=== PATIENT | female | born 2000 | race Caucasian/White ===

== ENCOUNTER 2018-03-08 14:55 | Emergency (ER) | payer OTHER ==
[2018-03-08] MEDS ORDERED: ACETAMINOPHEN 325 MG TAB PO ONE (15:14)
--- NOTE | 2018-03-08 15:14 | EDPHY ---
H & P Time Seen by Provider: 03/08/18 15:04 HPI/ROS: CHIEF COMPLAINT: Possible seizure HISTORY OF PRESENT ILLNESS: Patient presents with her friend after an incident that happened last night at 10:00 p.m.. She did not have much to eat or drink and had some marijuana. She was standing up at home, felt lightheaded, knew she was about to faint, and fell back and hit her head on the tile. Her chest was"heaving"per her friend her about 5-10 seconds and then she got up and was alert and lay back on her bed and proceeded to have tonic-clonic shaking more in their arms and her legs with her eyes rolled back for 10-15 seconds. Afterwards she was a little bit confused but was able to speak to her roommate and they actually drove around looking for urgent care but she started feeling better and they went home. She presents today just feeling"out of it"with a headache which is mild. No further episodes. She did not bite her tongue or have incontinence. REVIEW OF SYSTEMS: Eye: no change in vision ENT: no sore throat Cardiac: HPI Pulmonary: no cough or SOB Abdomen: no vomiting, diarrhea, abdominal pain Musculoskeletal: no back pain or neck pain Skin: No laceration Neuro: HPI Constitutional: no fever : no urinary symptoms A comprehensive 10 point review of systems is otherwise negative aside from elements mentioned in the history of present illness. PAST MEDICAL HISTORY: Negative Social history: Here with a friend, [employer] student. General Appearance: Alert and conversant, cooperative. Eyes: No scleral icterus. Pupils equal and reactive, extraocular motion intact , no nystagmus. ENT, Mouth: Normal mucous membranes. No tongue laceration or abrasion. Normal tympanic membranes. Respiratory: Normal respiratory effort, breath sounds equal, lungs are clear to auscultation. Cardiovascular: Regular rate and rhythm. Gastrointestinal: Abdomen is soft and non tender. Neurological: Alert, face symmetric, normal motor and sensory in extremities. Normal [id number] bilaterally, speech is fluent. Skin: Warm and dry, no rashes. Musculoskeletal: No cervical thoracic or lumbar spine tenderness to palpation. Psychiatric: Not agitated. Emergency Department course/MDM: Differential includes syncope with head trauma and post traumatic seizure, head trauma with myoclonic jerking, primary seizure disorder. Plan EKG, CBC chemistry and test, noncontrast head CT discussed and consented. 1610: Results reviewed personally with the patient, differential including but not limited to syncope with head injury and possible concussion versus primary seizure discussed. Warned no driving. Mandatory neurology follow-up. Smoking Status: Never smoked Constitutional: Initial Vital Signs Temperature (C) 36.6 C 03/08/18 14:56 Heart Rate 64 03/08/18 14:56 Respiratory Rate 16 03/08/18 14:56 Blood Pressure 139/85 H 03/08/18 14:56 O2 Sat (%) 100 03/08/18 14:56 O2 Delivery Mode Room Air Allergies/Adverse Reactions: No Known Allergies Allergy (Unverified 03/08/18 15:00) Home Medications: Medication Instructions Recorded NK [No Known Home Meds] 03/08/18 Medical Decision Making - Diagnostics EKG Interpretation: 12-lead EKG interpreted by me; official reading is in trace master. My interpretation is sinus rhythm rate 52 normal intervals. Imaging Results: Imaging Impressions Head CT 03/08/18 15:15 Impression: No acute intracranial findings. If symptoms persist and clinical suspicion warrants, consider MRI. Findings discussed with REECE KELLEY 03/08/2018 at 16:06. Normal head CT per Dr. Gonzalez at 4:06 p.m. Imaging: Discussed imaging studies w/ outbound call center representative Radiologist Differential Diagnosis: Differential diagnosis considered for head injury including but not limited to concussion, skull fracture, intraparenchymal contusion, subarachnoid, subdural and epidural hematoma. Differential diagnosis considered for a seizure including but not limited to electrolyte abnormality, alcohol withdrawal, medication noncompliance, head injury, and breakthrough seizure. - Data Points Laboratory Results: Laboratory Results 03/08/18 15:03 03/08/18 15:03 03/08/18 03/08/18 03/08/18 15:03 15:03 15:03 WBC 5.17 10^3/uL 10^3/uL (3.80-9.50) RBC 4.96 10^6/uL 10^6/uL (4.18-5.33) Hgb 10.8 g/dL L g/dL (12.6-16.3) Hct 35.8 % L % (38.0-47.0) MCV 72.2 fL L fL (81.5-99.8) MCH 21.8 pg L pg (27.9-34.1) MCHC 30.2 g/dL L g/dL (32.4-36.7) RDW 16.1 % H % (11.5-15.2) Plt Count 232 10^3/uL 10^3/uL (150-400) MPV 8.8 fL fL (8.7-11.7) Neut % (Auto) 49.3 % % (39.3-74.2) Lymph % (Auto) 39.8 % % (15.0-45.0) [place] % (Auto) 9.7 % % (4.5-13.0) Eos % (Auto) 0.4 % L % (0.6-7.6) Baso % (Auto) 0.6 % % (0.3-1.7) Nucleat RBC Rel Count 0.0 % % (0.0-0.2) Absolute Neuts (auto) 2.55 10^3/uL 10^3/uL (1.70-6.50) Absolute Lymphs (auto) 2.06 10^3/uL 10^3/uL (1.00-3.00) Absolute Monos (auto) 0.50 10^3/uL 10^3/uL (0.30-0.80) Absolute Eos (auto) 0.02 10^3/uL L 10^3/uL (0.03-0.40) Absolute Basos (auto) 0.03 10^3/uL 10^3/uL (0.02-0.10) Absolute Nucleated RBC 0.00 10^3/uL 10^3/uL (0-0.01) Immature Gran % 0.2 % % (0.0-1.1) Immature Gran # 0.01 10^3/uL 10^3/uL (0.00-0.10) Sodium 142 mEq/L mEq/L (135-145) Potassium 3.8 mEq/L mEq/L (3.5-5.2) Chloride 106 mEq/L mEq/L (97-110) Carbon Dioxide 26 mEq/l mEq/l (22-31) Anion Gap 10 mEq/L mEq/L (8-16) BUN 7 mg/dL mg/dL (7-23) Creatinine 0.6 mg/dL mg/dL (0.6-1.0) Estimated GFR > 60 Glucose 88 mg/dL mg/dL (70-100) Calcium 9.6 mg/dL mg/dL (8.5-10.4) Beta HCG, Qual NEGATIVE Medications Given: Discontinued Medications Acetaminophen (Tylenol) 650 mg PO EDNOW ONE Stop: 03/08/18 15:15 Last Admin: 03/08/18 15:26 Dose: 650 mg Departure - Departure Disposition: Home, Routine, Self-Care Clinical Impression: Seizure Anemia Qualifiers: Anemia type: unspecified type Qualified Code(s): D64.9 - Anemia, unspecified Syncope Qualifiers: Syncope type: unspecified Qualified Code(s): R55 - Syncope and collapse Condition: Good Instructions: New-Onset Seizure in Adults (ED) Additional Instructions: It is possible that you had a seizure, please follow-up with Neurology this week and no driving until cleared by them. Your also referred to Dr. Bower for primary care as you had incidentally diagnosed mild anemia with a hematocrit of 35 today in the emergency department. Please follow-up with her within the next month. Referrals: Alvarez Jimenes MD [Medical Doctor] - 5-7 days, call for appt. (please followup with this neurologist in the office this week.) Ed Bower MD [Medical Doctor] - As per Instructions
--- NOTE | 2018-03-08 15:19 | CPEKG ---
Heart Rate: 52 RR Interval: 1154 P-R Interval: 160 QRSD Interval: 82 QT Interval: 428 QTC Interval: 398 P Mora: 57 QRS Mora: 64 T Wave Mora: 49 EKG Severity - NORMAL ECG - EKG Impression: SINUS RHYTHM Electronically Signed By: Guy Lopes 08-Mar-2018 15:27:57
[2018-03-08 15:31] LABS: PLATELET COUNT 232 10^3/uL (150-400)
[2018-03-08 16:18] VITALS: BP 128/82
== END 2018-03-08 16:18 | disposition home or self-care (01) ==
DX: R55 Syncope and collapse (principal); D64.9 Anemia, unspecified; R56.9 Unspecified convulsions

== ENCOUNTER → 2018-03-18 | Outpatient (CLI) | payer OTHER ==
--- NOTE | 2018-03-23 10:01 | CPEEG ---
[f rep st] ELECTROENCEPHALOGRAM DATE OF STUDY: 03/18/2018 DATE OF INTERPRETATION: 03/23/2018 INTERPRETATION: Normal EEG during wakefulness and drowsiness. There were no potentially epileptogenic abnormalities present in the recording. REPORT: This EEG contains 11 Hz alpha activity over the posterior head regions. There was no abnormal activation at rest, during photic stimulation or hyperventilation. The patient intermittently became drowsy during the study. There was no abnormal activation during drowsiness or during times of arousal. /[id number]/MODL MTDD
== END ==
LOC: FCPNEURO 10:00
PROVIDERS: ATTEND Physician Assistant Medical
DX: R56.9 Unspecified convulsions (principal)

== ENCOUNTER → 2018-06-18 | Outpatient (CLI) | payer OTHER | LOC: FIMAGING 10:26 | PROVIDERS: ATTEND Physician Assistant Medical | DX: R56.9 Unspecified convulsions (principal); J34.9 Unspecified disorder of nose and nasal sinuses ==